=== PATIENT | female | born 1980 | race American Indian/Alaskan Native ===

== ENCOUNTER 2016-12-22 14:16 | Emergency (ER) | payer SELFPAY ==
--- NOTE | 2016-12-22 14:34 | Emergency Department Report ---
Entered by RICK MACHADO, acting as scribe for DAVID FARLEY NP. Chief Complaint: Abdominal Pain Stated Complaint: ABD PAIN/NAUSEA/DIZZINESS/LIGHTHEADED Time Seen by Provider: 12/22/16 14:22 - HPI History of Present Illness: 36 y/o female presents with constant, 10/10 abd pain that started last night. Sx include dizziness and nausea. Pt notes being seen recently at ED and told she has gallstones. LMP 11/25/16. - ROS Review of Systems: +dizziness +nausea +abd pain - Exam Vital Signs: Vital Signs 12/22/16 14:23 Temperature 98.6 F Pulse Rate 88 Respiratory 20 Rate Blood Pressure 145/61 O2 Sat by Pulse 100 Oximetry Physical Exam: abd: LUQ TTP, soft, no rebound, no guarding. MSE screening note: Focused history and physical exam performed. 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
[2016-12-22 15:04] LABS: Basophils % (Auto) 2.1 % (0.0-1.8); Eosinophils % (Auto) 1.7 % (0.0-4.3); Hematocrit 37.3 % (30.3-42.9); Hemoglobin 12.3 gm/dl (10.1-14.3); Mean Corpuscular HGB Conc 33 % (30-34); Mean Corpuscular Hemoglobin 29 pg (28-32); Mean Corpuscular Volume 86 fl (79-97); Platelet Count 263 K/mm3 (140-440); Red Blood Count 4.32 M/mm3 (3.65-5.03); Red Cell Distribution Width 16.2 % (13.2-15.2)
[2016-12-22 15:08] LABS: Alanine Aminotransferase 26 units/L (7-56); Albumin 4.2 g/dL (3.9-5); Albumin/Globulin Ratio 1.1 %; Alkaline Phosphatase 97 units/L (35-129); Anion Gap 19 mmol/L; Blood Urea Nitrogen 10 mg/dL (7-17); Calcium 9.2 mg/dL (8.4-10.2); Carbon Dioxide 25 mmol/L (22-30); Chloride 98.9 mmol/L (98-107); Glucose 108 mg/dL (65-100); Lipase 45 units/L (13-60); Potassium 3.7 mmol/L (3.6-5.0); Sodium 139 mmol/L (137-145); Total Protein 7.9 g/dL (6.3-8.2)
[2016-12-22 15:47] LABS: Bilirubin,Urine NEG (Negative); Blood,Urine NEG (Negative); Ketones,Urine NEG (Negative); Leukocyte Esterase,Urine NEG (Negative); Mucus,Urine 1+ /HPF; Nitrite,Urine NEG (Negative); Protein,Urine <15 mg/dL mg/dL (Negative); Urobilinogen,Urine < 2.0 mg/dL (<2.0)
[2016-12-22 23:12] VITALS: BP 152/107
== END 2016-12-22 23:00 | disposition left against medical advice (07) ==
LOC: ED 14:16
DX: R10.12 Left upper quadrant pain (principal); R42 Dizziness and giddiness; R11.0 Nausea; Z53.21 Procedure and treatment not carried out due to patient leaving prior to being seen by health care provider
CPT/HCPCS: 36415; 80053; 81001; 83690; 84703; 85025

== ENCOUNTER 2019-01-09 11:23 | Emergency (ER) | payer SELFPAY ==
--- NOTE | 2019-01-09 11:38 | Event Note ---
ED Screening Note Date of service: 01/09/19 Time: 11:37 ED Screening Note: 38 y/o female comes in for 1 day history of vaginal discharge. LMP:01/05/19 . This initial assessment/diagnostic orders/clinical plan/treatment(s) is/are subject to change based on patients health status, clinical progression and re- assessment by fellow clinical providers in the ED. Further treatment and workup at subsequent clinical providers discretion. Patient/guardian urged not to elope from the ED as their condition may be serious if not clinically assessed and managed. Initial orders include:
[2019-01-09 11:39] VITALS: BP 130/88
[2019-01-09 12:42] LABS: Bacteria,Urine 1+ /HPF (Negative); Bilirubin,Urine NEG (Negative); Blood,Urine NEG (Negative); Color,Urine Yellow (Yellow); Mucus,Urine 3+ /HPF; Urobilinogen,Urine < 2.0 mg/dL (<2.0)
[2019-01-09 13:05] LABS: HCG Qualitative,Urine Negative (Negative)
[2019-01-09] MEDS ORDERED: ROCEPHIN IM ONE (13:10)
[2019-01-09] MEDS ORDERED: XYLOCAINE 1% MPF 5 mL INFILTRATI ONE (13:10)
[2019-01-09] MEDS ORDERED: ZITHROMAX PO ONE (13:10)
[2019-01-09] MEDS ORDERED: FLAGYL PO ONE (13:10)
[2019-01-09] MEDS ORDERED: DIFLUCAN PO ONE (13:10)
[2019-01-09] MEDS ORDERED: ZOFRAN ODT PO ONE (13:11)
--- NOTE | 2019-01-09 13:35 | Emergency Department Report ---
ED Female HPI - General Chief complaint: Urogenital-Female Stated complaint: VAGINAL ITCHING/BURNING/DISCHARGE Time Seen by Provider: 01/09/19 11:36 Source: patient Mode of arrival: Ambulatory Limitations: No Limitations - History of Present Illness Initial comments: Ms. Loomis is a 38-year-old female who presents with vaginal discharge itching and burning. Grayish discharge. No fever. No abdominal pain. Gradual onset of symptoms. Present for 1 day. Mild symptoms. MD Complaint: vaginal discharge -: Gradual Location: labia Severity: mild Quality: burning Consistency: constant Improves with: none Worsens with: none Are you Now?: No Associated Symptoms: vaginal discharge - Related Data Home Medications Medication Instructions Recorded Confirmed Last Taken No Known Home Medications [No 08/22/13 08/22/13 Unknown Reported Home Medications] Allergies Allergy/AdvReac Type Severity Reaction Status Date / Time No Known Allergies Allergy Unverified 08/22/13 13:07 ED Review of Systems ROS: Stated complaint: VAGINAL ITCHING/BURNING/DISCHARGE Other details as noted in HPI Constitutional: denies: fever, malaise Cardiovascular: denies: chest pain Gastrointestinal: denies: abdominal pain, nausea, vomiting, diarrhea Genitourinary: discharge. denies: urgency, dysuria, frequency, hematuria, abnormal menses, dyspareunia Skin: denies: rash, lesions ED Past Medical Hx - Past Medical History Additional medical history: Gallstones - Surgical History Additional Surgical History: tubiligation,Fx left knee - Social History Smoking Status: Former Smoker Substance Use Type: None - Medications Home Medications: Home Medications Medication Instructions Recorded Confirmed Last Taken Type No Known Home Medications [No 08/22/13 08/22/13 Unknown History Reported Home Medications] ED Physical Exam - General Limitations: No Limitations General appearance: alert, in no apparent distress - Head Head exam: Present: atraumatic, normocephalic - Eye Eye exam: Present: normal appearance - ENT ENT exam: Present: mucous membranes moist - Neck Neck exam: Present: normal inspection, full ROM - Respiratory Respiratory exam: Absent: respiratory distress - Extremities Exam Extremities exam: Present: normal inspection - Back Exam Back exam: Present: normal inspection, full ROM - Neurological Exam Neurological exam: Present: alert, oriented X3 - Psychiatric Psychiatric exam: Present: normal affect, normal mood - Skin Skin exam: Present: warm, dry, intact, normal color ED Course Vital Signs 01/09/19 11:37 Temperature 98.3 F Pulse Rate 65 Respiratory 16 Rate Blood Pressure 130/88 O2 Sat by Pulse 100 Oximetry ED Medical Decision Making - Medical Decision Making Vaginal irritation with discharge: Patient was treated for vaginitis and cervicitis with ceftriaxone, azithromycin, metronidazole, fluconazole here in the emergency department. Critical care attestation.: If time is entered above; I have spent that time in minutes in the direct care of this critically ill patient, excluding procedure time. ED Disposition Clinical Impression: Vaginitis, Cervicitis Disposition: DC-01 TO HOME OR SELFCARE Is pt being admited?: No Does the pt Need Aspirin: No Condition: Stable Instructions: Cervicitis (ED), Vaginitis (ED) Additional Instructions: In the emergency department you were treated for Trichomonas, yeast infection, bacterial vaginosis, chlamydia and gonorrhea. If you desire STD testing, please follow up with the referral clinics. Referrals: CRISTAL DIXON MD [Primary Care Provider] - 3-5 Days [facility] [Outside] - 3-5 Days Forms: STI Treatment and Prevention, Work/School Release Form(ED)
== END 2019-01-09 13:40 | disposition home or self-care (01) ==
LOC: ED 11:23
DX: N76.0 Acute vaginitis (principal); N72 Inflammatory disease of cervix uteri; Z87.19 Personal history of other diseases of the digestive system; Z87.891 Personal history of nicotine dependence; Z98.51 Tubal ligation status
CPT/HCPCS: 81001; 81025; 87086; 96372; 99283; J0696; Q0162